=== PATIENT | female | born 1990 | race Caucasian/White ===

== ENCOUNTER 2023-10-27 23:02 | Inpatient (IN) | payer MEDICAID, SELFPAY ==
[2023-10-27 23:09] VITALS: BP 132/86; PULSE 97; RESP 20; TEMP 36.6; O2SAT 99; BMI 22.3
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
[2023-10-27 23:36] LABS: Basophils # 0.1 10^3/uL (0.0-0.1); Basophils % 0.6 %; Eosinophils # 0.1 10^3/uL (0.0-0.8); Eosinophils % 0.8 %; Hematocrit 34.8 % (36-47); Lymphocytes # 2.5 10^3/uL (0.8-4.8); Lymphocytes % 30.5 %; Mean Corpuscular HGB Conc 35.3 g/dL (30-55); Mean Corpuscular Hemoglobin 29.9 pg (27-33); Mean Corpuscular Volume 84.5 fl (85-98); Mean Platelet Volume 9.3 fL (7.4-10.4); Monocytes # 0.4 10^3/uL (0.2-0.9); Monocytes % 4.7 %; Neutrophils # 5.24 10^3/uL (1.8-7.7); Neutrophils % 63.2 %; Nucleated Red Blood Cells % 0 %; Platelet Count 248 10^3/cmm (157-399); Red Blood Count 4.12 10^6/uL (3.85-5.65); Red Cell Distribution Width 12.9 % (12.1-15.1)
[2023-10-27 23:38] LABS: Add Urine Microscopic? NO; Charge for UA Resulting for Rev
[2023-10-27 23:42] LABS: Bilirubin Urine Neg (Negative); Blood Urine Neg (Negative); Glucose Urine UA Norm (Normal); Ketones Urine 1+ (Negative); Leukocyte Esterase Urine Negative (Negative); Nitrate Urine Negative (Negative); Protein Urine Neg (Negative); Urine Appearance Clear (CLEAR); Urine Color Yellow (Yellow); Urobilinogen Urine Neg (Negative); pH Urine 6 (5-7)
[2023-10-27 23:49] LABS: Amphetamines Screen Urine Positive (Negative); Barbiturates Screen Urine Negative (Negative); Benzodiazepines Screen Urine Negative (Negative); Cocaine Screen Urine Negative (Negative); Opiate Screen Urine Negative (Negative); PCP Screen Urine Negative (Negative); THC Screen Urine Positive (Negative)
[2023-10-28 00:03] LABS: Alanine Aminotransferase 20 U/L (0-33); Albumin Level 4.4 g/dL (3.5-5.2); Alkaline Phosphatase 64 U/L (35-105); Anion Gap 14.9 (5-19); Aspartate Amino Transferase 21 U/L (0-32); Blood Urea Nitrogen 14 mg/dL (6-20); Calcium 9.5 mg/dL (8.5-10.5); Carbon Dioxide 21 mmol/L (22-29); Chloride 106 mmol/L (98-107); Creatinine Clr Calc Pharmacy 87.4012; Globulin 2.8 g/dL (1.3-4.6); Glomerular Filtration Rate 81.6 mL/min (90-130); Glucose 88 mg/dL (65-115); Osmolality Calculated 286 mOsm/kg (285-295); Potassium 3.9 mmol/L (3.5-5.1); Sodium 138 mmol/L (136-145); Thyroid Stimulating Hormone 1.05 uIU/mL (0.27-4.20); Total Bilirubin 0.4 mg/dL (0.15-1.2); Total Protein 7.2 g/dL (6.6-8.7)
[2023-10-28 00:05] LABS: Acetaminophen < 5.0 ug/mL (10-30); Alcohol Level < 10 mg/dL (0-10); HCG, Serum Qual Negative (Negative); Salicylate < 0.3 mg/dL (3-10)
[2023-10-28 00:34] VITALS: BP 108/63; PULSE 94; RESP 18; TEMP 36.6; O2SAT 98
--- NOTE | 2023-10-28 00:35 | PC.NURSE ---
Report called to Massiel GENAO in NPU. All questions and concerns addressed at time of report.
[2023-10-28] MEDS: nicotine 4 mg lozenge MUCOUS MEM ×4 (00:56→18:46)
[2023-10-28 06:00] VITALS: BP 109/66; PULSE 70; RESP 16; O2SAT 99
[2023-10-28 08:13] LABS: Glucose Point of Care 159 mg/dL (70-110)
[2023-10-28] MEDS: fixodent 39 gm Tube 1 APPLIC DENTAL ×2 (08:14→21:36)
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
[2023-10-28 14:00] VITALS: BP 97/60; PULSE 71; RESP 16; TEMP 36.6; O2SAT 100
[2023-10-28 20:44] VITALS: BP 106/54; PULSE 70; RESP 14; TEMP 36.8; O2SAT 98
[2023-10-28] MEDS: hyDROXYzine 25 mg Capsule 50 MG PO (20:49)
[2023-10-28] MEDS: prazosin 1 mg Capsule PO (20:49)
[2023-10-29 05:50] VITALS: BP 109/77; PULSE 140; RESP 17; TEMP 36.7; O2SAT 98
[2023-10-29] MEDS: nicotine 4 mg lozenge MUCOUS MEM ×6 (05:59→20:46)
[2023-10-29 06:10] VITALS: PULSE 92
[2023-10-29] MEDS: acetaminophen 325 mg Tablet 650 MG PO (06:17)
[2023-10-29] MEDS: buPROPion XL (24 HR) 150 mg Tablet PO (07:45)
--- NOTE | 2023-10-29 08:12 | P.NPUPN_ITS ---
Subjective NPU 2 Subjective: Patient presented today reporting that she is doing okay. She reported getting the medications last night and this morning and denied any specific issues thus far. She denied feeling worse than she did yesterday but did not report feeling better. She denied any side effects to the medication and reports that she is just hopeful that things will get better and she will be able to engage in some kind of treatment that can change the trajectory of her life right now. Mental Status Exam 2 MSE Comments: This is a slender versus underweight white female in hospital scrubs with limited grooming and adequate eye contact. Absent dentition looking older than her stated age with some tattoos on exposed skin. No abnormal movements except for psychomotor retardation. Cooperative with exam in mild to moderate distress. Speech was slightly decreased rate and volume. Mood described as bilateral no definitely not worse, affect is congruent.? Thought process: linear and logical.?Thought content: patient denies current suicidal or homicidal ideation, paranoia reported and patient appears guarded. She denied current auditory or visual hallucinations. Attention and concentration are intact and memory appears mostly reliable but none were formally tested. She is alert and oriented times 3. ? Insight and judgment limited. Impulse control is limited. Vitals/I&O/Wt Last Vital Signs Temp 98.1 F 10/29/23 05:50 Pulse 92 10/29/23 06:10 Resp 17 10/29/23 05:50 BP 109/77 10/29/23 05:50 Pulse Ox 98 10/29/23 05:50 O2 Del Method Room Air 10/29/23 05:50 Weight last 48 hrs Weight 58.967 kg Data NPU 10/27/23 23:30 10/27/23 23:30 A&P Assessment and plan (1) Drug-induced psychotic disorder: Qualifiers: Complication of substance-induced condition: with delusions Qualified Code(s): F19.950 - Other psychoactive substance use, unspecified with psychoactive substance-induced psychotic disorder with delusions (2) Major depressive disorder, recurrent: (3) PTSD (post-traumatic stress disorder): (4) Anxiety disorder: (5) Methamphetamine use disorder, severe: (6) History of alcohol use disorder: (7) Cannabis use disorder: Plan This is a 33-year-old white female with a long history of psychiatric illness and addiction going back to childhood with reports of significant trauma and PTSD symptoms who presents with a complex history of substance use, mental health issues, and social challenges open to restarting some medications with which she has had past success. 1.? ?Encourage individual ,milieu, and group therapy 2. ? We will attempt to gather collateral information. 3. ? TO-15 minute checks on the unit. 4.? Recommend sober living treatment at the highest level of care to which the patient is willing to commit. 5. Started Wellbutrin XL 150 mg p.o. every morning and prazosin 1 mg p.o. nightly. Involuntary Hold Information 2 96 Hour Hold: 96 Hour Involuntary Admission: No Attestations NPU 2 Medical Necessity Statement*: Inpatient hospitalization is medically necessary and the clinically appropriate intervention at this time. We will monitor/initiate medications and make changes as indicated. Likely length of stay is 2-4 days. Coding Level of Care Code Acute Code for g Fwd Diagnoses Drug-induced psychotic disorder F19.950 Complication of substance-induced condition: with delusions Major depressive disorder, recurrent F33.9 PTSD (post-traumatic stress disorder) F43.10 Anxiety disorder F41.9 Methamphetamine use disorder, severe F15.20 History of alcohol use disorder Z87.898 Cannabis use disorder F12.90
[2023-10-29] MEDS: hyDROXYzine 25 mg Capsule 50 MG PO (09:01)
[2023-10-29] MEDS: OLANZapine 5 mg ODT PO ×2 (10:07→20:46)
--- NOTE | 2023-10-29 10:08 | PC.NURSE ---
Pt is extremely anxious this morning, administered Vistaril 50mg PO and also 30 min later pt required 5mg Zyprexa.
[2023-10-29 14:00] VITALS: BP 101/64; PULSE 92; RESP 16; TEMP 36.6; O2SAT 100
[2023-10-29 19:35] VITALS: BP 98/56; PULSE 77; RESP 16; TEMP 36.4; O2SAT 99
[2023-10-29] MEDS: prazosin 1 mg Capsule PO (20:46)
[2023-10-30] MEDS: hyDROXYzine 25 mg Capsule 50 MG PO ×3 (00:47→17:53)
[2023-10-30] MEDS: nicotine 4 mg lozenge MUCOUS MEM ×8 (00:47→19:38)
[2023-10-30 06:00] VITALS: BP 102/68; PULSE 66; RESP 17; TEMP 36.7; O2SAT 98
[2023-10-30] MEDS: buPROPion XL (24 HR) 150 mg Tablet PO (07:59)
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
[2023-10-30] MEDS: OLANZapine 5 mg ODT PO ×2 (10:31→21:34)
--- NOTE | 2023-10-30 11:04 | P.NPUPN_ITS ---
Subjective NPU 2 Subjective: Patient presented today reporting that she is managing wanted to do medications without incident. She has been mostly isolating and lying in her bed per staff reports and direct observation. We continue to discuss getting her connected with sober living treatment and that the social work team will be back tomorrow and able to assist her in looking at the options and possibilities. She has been using a lot of as needed medications to try to cope with her withdrawal and anxiety. She denied any side effects to the medication. Mental Status Exam 2 MSE Comments: This is a slender versus underweight white female in hospital scrubs with limited grooming and adequate eye contact. Absent dentition looking older than her stated age with some tattoos on exposed skin. No abnormal movements except for psychomotor retardation. Cooperative with exam in mild to moderate distress. Speech was slightly decreased rate and volume. Mood described as bilateral no definitely not worse, affect is congruent.? Thought process: linear and logical.?Thought content: patient denies current suicidal or homicidal ideation, paranoia reported and patient appears guarded. She denied current auditory or visual hallucinations. Attention and concentration are intact and memory appears mostly reliable but none were formally tested. She is alert and oriented times 3. ? Insight and judgment limited. Impulse control is limited. Vitals/I&O/Wt Last Vital Signs Temp 98.1 F 10/30/23 06:00 Pulse 66 10/30/23 06:00 Resp 17 10/30/23 06:00 BP 102/68 10/30/23 06:00 Pulse Ox 98 10/30/23 06:00 O2 Del Method Room Air 10/30/23 06:00 Weight last 48 hrs Weight 58.967 kg Data NPU 10/27/23 23:30 10/27/23 23:30 A&P Assessment and plan (1) Drug-induced psychotic disorder: Qualifiers: Complication of substance-induced condition: with delusions Qualified Code(s): F19.950 - Other psychoactive substance use, unspecified with psychoactive substance-induced psychotic disorder with delusions (2) Major depressive disorder, recurrent: (3) PTSD (post-traumatic stress disorder): (4) Anxiety disorder: (5) Methamphetamine use disorder, severe: (6) History of alcohol use disorder: (7) Cannabis use disorder: Plan This is a 33-year-old white female with a long history of psychiatric illness and addiction going back to childhood with reports of significant trauma and PTSD symptoms who presents with a complex history of substance use, mental health issues, and social challenges open to restarting some medications with which she has had past success. 1.? ?Encourage individual ,milieu, and group therapy 2. ? We will attempt to gather collateral information. 3. ? TO-15 minute checks on the unit. 4.? Recommend sober living treatment at the highest level of care to which the patient is willing to commit. 5. Started Wellbutrin XL 150 mg p.o. every morning and prazosin 1 mg p.o. nightly. Involuntary Hold Information 2 96 Hour Hold: 96 Hour Involuntary Admission: No Attestations NPU 2 Medical Necessity Statement*: Inpatient hospitalization is medically necessary and the clinically appropriate intervention at this time. We will monitor/initiate medications and make changes as indicated. Likely length of stay is 2-3 days. Coding Level of Care Code Acute Code for [facility] Fwd Diagnoses Drug-induced psychotic disorder F19.950 Complication of substance-induced condition: with delusions Major depressive disorder, recurrent F33.9 PTSD (post-traumatic stress disorder) F43.10 Anxiety disorder F41.9 Methamphetamine use disorder, severe F15.20 History of alcohol use disorder Z87.898 Cannabis use disorder F12.90
[2023-10-30 13:31] VITALS: BP 100/55; PULSE 92; RESP 16; TEMP 36.6; O2SAT 99
[2023-10-30] MEDS: haloperidol 5 mg Tablet PO (18:01)
[2023-10-30] MEDS: benztropine 1 mg Tablet PO (18:01)
[2023-10-30 19:54] VITALS: BP 110/78; PULSE 93; RESP 18; TEMP 36.8; O2SAT 98
[2023-10-30] MEDS: prazosin 1 mg Capsule PO (21:34)
[2023-10-31 06:00] VITALS: BP 123/87; PULSE 99; RESP 16; TEMP 36.9; O2SAT 96
[2023-10-31] MEDS: nicotine 4 mg lozenge MUCOUS MEM ×5 (06:19→17:24)
[2023-10-31] MEDS: acetaminophen 325 mg Tablet 650 MG PO (07:49)
[2023-10-31] MEDS: buPROPion XL (24 HR) 150 mg Tablet PO (07:49)
[2023-10-31] MEDS: hyDROXYzine 25 mg Capsule 50 MG PO ×2 (09:12→15:09)
[2023-10-31 14:00] VITALS: BP 103/71; PULSE 85; RESP 16; TEMP 36.6; O2SAT 98
--- NOTE | 2023-10-31 16:10 | P.NPUPN_ITS ---
Subjective NPU 2 Subjective: Patient presented today reporting that she is feeling some level of improvement. She was once again somewhat focused on finding someplace to evaluate her for autism or ADHD. We discussed the role that addiction can play and distorting a presentation and the importance of her having sobriety for a good period of time for someone to have confidence in any diagnoses that she is given. She denied any specific side effects of the medication and was working with the social work team on possible sober living options. Mental Status Exam 2 MSE Comments: This is a slender versus underweight white female in hospital scrubs with limited grooming and adequate eye contact. Absent dentition looking older than her stated age with some tattoos on exposed skin. No abnormal movements except for psychomotor retardation. Cooperative with exam in mild distress. Speech was slightly decreased rate and volume. Mood described as a little better but definitely not worse, affect is congruent.? Thought process: linear and logical.?Thought content: patient denies current suicidal or homicidal ideation, paranoia reported and patient appears guarded. She denied current auditory or visual hallucinations. Attention and concentration are intact and memory appears mostly reliable but none were formally tested. She is alert and oriented times 3. ? Insight and judgment limited. Impulse control is limited. Vitals/I&O/Wt Last Vital Signs Temp 98 F 10/31/23 14:00 Pulse 85 10/31/23 14:00 Resp 16 10/31/23 14:00 BP 103/71 10/31/23 14:00 Pulse Ox 98 10/31/23 14:00 O2 Del Method Room Air 10/31/23 14:00 Weight last 48 hrs Weight 58.967 kg Data NPU 10/27/23 23:30 10/27/23 23:30 A&P Assessment and plan (1) Drug-induced psychotic disorder: Qualifiers: Complication of substance-induced condition: with delusions Qualified Code(s): F19.950 - Other psychoactive substance use, unspecified with psychoactive substance-induced psychotic disorder with delusions (2) Major depressive disorder, recurrent: (3) PTSD (post-traumatic stress disorder): (4) Anxiety disorder: (5) Methamphetamine use disorder, severe: (6) History of alcohol use disorder: (7) Cannabis use disorder: Plan This is a 33-year-old white female with a long history of psychiatric illness and addiction going back to childhood with reports of significant trauma and PTSD symptoms who presents with a complex history of substance use, mental health issues, and social challenges open to restarting some medications with which she has had past success. 1.? ?Encourage individual ,milieu, and group therapy 2. ? We will attempt to gather collateral information. 3. ? TO-15 minute checks on the unit. 4.? Recommend sober living treatment at the highest level of care to which the patient is willing to commit. 5. Started Wellbutrin XL 150 mg p.o. every morning and prazosin 1 mg p.o. nightly. Involuntary Hold Information 2 96 Hour Hold: 96 Hour Involuntary Admission: No Attestations NPU 2 Medical Necessity Statement*: Inpatient hospitalization is medically necessary and the clinically appropriate intervention at this time. We will monitor/initiate medications and make changes as indicated. Likely length of stay is 1-3 days. Coding Level of Care Code Acute Code for [facility] Fwd Diagnoses Drug-induced psychotic disorder F19.950 Complication of substance-induced condition: with delusions Major depressive disorder, recurrent F33.9 PTSD (post-traumatic stress disorder) F43.10 Anxiety disorder F41.9 Methamphetamine use disorder, severe F15.20 History of alcohol use disorder Z87.898 Cannabis use disorder F12.90
[2023-10-31] MEDS: OLANZapine 5 mg ODT PO (17:08)
--- NOTE | 2023-10-31 17:55 | PC.NURSE ---
room searched by staff, no contraband found at this time.
[2023-10-31 20:21] VITALS: BP 131/83; PULSE 93; RESP 17; TEMP 36.9; O2SAT 99
[2023-10-31] MEDS: prazosin 1 mg Capsule PO (20:46)
[2023-10-31] MEDS: propranolol 20 mg Tablet 10 MG PO (20:46)
[2023-11-01 06:00] VITALS: BP 109/64; PULSE 80; RESP 16; TEMP 36.7; O2SAT 97
[2023-11-01] MEDS: nicotine 4 mg lozenge MUCOUS MEM ×6 (07:43→18:22)
[2023-11-01] MEDS: propranolol 20 mg Tablet 10 MG PO ×3 (08:38→20:09)
[2023-11-01] MEDS: buPROPion XL (24 HR) 150 mg Tablet PO (08:38)
[2023-11-01] MEDS: OLANZapine 5 mg ODT PO (12:12)
--- NOTE | 2023-11-01 13:00 | W.PM.NPUPNS ---
Subjective NPU Subjective: Patient presented today reporting that she is starting to feel better. Notable improvement expressed by staff and noteworthy on direct observation. She expressed a need for something to help with her sleep and we discussed the risk benefits and alternatives of a trial of Seroquel and she understood agreed to proceed as is documented in this note. She endorsed having previous success with Seroquel. She reported that she was working with social media content specialist for some different options for discharge in the next day or so. She denied any side effects of the medications. Mental Status Exam MSE Comments: This is a slender versus underweight white female in hospital scrubs with improving grooming and adequate eye contact. Absent dentition looking older than her stated age with some tattoos on exposed skin. No abnormal movements except for mild psychomotor retardation. Cooperative with exam in mild distress. Speech was more normal rate and volume. Mood described as a little better, affect is congruent.? Thought process: linear and logical.?Thought content: patient denies current suicidal or homicidal ideation, paranoia reported and patient appears guarded. She denied current auditory or visual hallucinations. Attention and concentration are intact and memory appears mostly reliable but none were formally tested. She is alert and oriented times 3. ? Insight and judgment limited. Impulse control is limited. Vitals/I&O/Wt Last Vital Signs Temp 98.0 F 11/01/23 06:00 Pulse 80 11/01/23 06:00 Resp 16 11/01/23 06:00 BP 109/64 11/01/23 06:00 Pulse Ox 97 11/01/23 06:00 O2 Del Method Room Air 11/01/23 06:00 Data NPU 10/27/23 23:30 10/27/23 23:30 A&P Assessment and plan (1) Drug-induced psychotic disorder: Qualifiers: Complication of substance-induced condition: with delusions Qualified Code(s): F19.950 - Other psychoactive substance use, unspecified with psychoactive substance-induced psychotic disorder with delusions (2) Major depressive disorder, recurrent: (3) PTSD (post-traumatic stress disorder): (4) Anxiety disorder: (5) Methamphetamine use disorder, severe: (6) History of alcohol use disorder: (7) Cannabis use disorder: Plan This is a 33-year-old white female with a long history of psychiatric illness and addiction going back to childhood with reports of significant trauma and PTSD symptoms who presents with a complex history of substance use, mental health issues, and social challenges open to restarting some medications with which she has had past success. 1.? ?Encourage individual ,milieu, and group therapy 2. ? We will attempt to gather collateral information. 3. ? TO-15 minute checks on the unit. 4.? Recommend sober living treatment at the highest level of care to which the patient is willing to commit. 5. Started Wellbutrin XL 150 mg p.o. every morning and prazosin 1 mg p.o. nightly. We discussed a trial of Seroquel 50 to 100 mg p.o. nightly to help with sleep. Involuntary Hold Information 96 Hour Hold: 96 Hour Involuntary Admission: No Attestations NPU Medical Necessity Statement*: Inpatient hospitalization is medically necessary and the clinically appropriate intervention at this time. We will monitor/initiate medications and make changes as indicated. Likely length of stay is 1-3 days. Coding Level of Care Code Acute Code for [facility] Diagnoses Drug-induced psychotic disorder F19.950 Complication of substance-induced condition: with delusions Major depressive disorder, recurrent F33.9 PTSD (post-traumatic stress disorder) F43.10 Anxiety disorder F41.9 Methamphetamine use disorder, severe F15.20 History of alcohol use disorder Z87.898 Cannabis use disorder F12.90
[2023-11-01 14:00] VITALS: BP 111/74; PULSE 85; RESP 16; TEMP 36.6; O2SAT 98
--- NOTE | 2023-11-01 18:40 | PC.NURSE ---
Room check completed with no contraband recovered.
[2023-11-01 19:42] VITALS: BP 93/59; PULSE 80; RESP 16; TEMP 36.9; O2SAT 99
[2023-11-01] MEDS: prazosin 1 mg Capsule PO (20:10)
[2023-11-01] MEDS: hyDROXYzine 25 mg Capsule 50 MG PO (20:15)
[2023-11-02] MEDS: nicotine 4 mg lozenge MUCOUS MEM ×6 (03:23→16:56)
[2023-11-02 05:05] VITALS: BP 112/81; PULSE 120; RESP 15; TEMP 36.8; O2SAT 98
[2023-11-02] MEDS: OLANZapine 5 mg ODT PO ×2 (05:23→17:16)
[2023-11-02] MEDS: propranolol 20 mg Tablet 10 MG PO ×2 (08:00→14:54)
[2023-11-02] MEDS: buPROPion XL (24 HR) 150 mg Tablet PO (08:00)
[2023-11-02] MEDS: hyDROXYzine 25 mg Capsule 50 MG PO (11:51)
[2023-11-02 14:00] VITALS: BP 108/74; PULSE 89; RESP 16; TEMP 36.6; O2SAT 98
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
[2023-11-02 14:28] VITALS: BP 112/81; PULSE 120; RESP 15; TEMP 36.8; O2SAT 98
== END 2023-11-02 17:20 | disposition home or self-care (01) | DRG 897 ==
LOC: ER 23:50 → NP 10-28 00:19
PROVIDERS: Admitting Provider Psychiatry & Neurology Psychiatry; Emergency Provider Nurse Practitioner Family; Visit Provider Psychiatry & Neurology Psychiatry
DX: F15.959 Other stimulant use, unspecified with stimulant-induced psychotic disorder, unspecified (principal); F32.9 Major depressive disorder, single episode, unspecified; F43.12 Post-traumatic stress disorder, chronic; F41.9 Anxiety disorder, unspecified; F10.21 Alcohol dependence, in remission; Z72.0 Tobacco use; Z62.810 Personal history of physical and sexual abuse in childhood
CPT/HCPCS: 36415; 36416; 80053; 80306; 80307; 81003; 82962; 84443; 84703; 85025; 97150; 97165; 99285; J9999

== ENCOUNTER 2024-03-02 18:23 | Emergency (ER) | payer MEDICAID, SELFPAY ==
[2024-03-02 18:32] VITALS: BP 128/68; PULSE 110; RESP 14; TEMP 36.9; O2SAT 97
--- NOTE | 2024-03-02 20:00 | W.ED.PSYCHS ---
HPI - Psych General: Chief Complaint: Psychiatric Symptoms Stated Complaint: Just got out of [facility], wants Meds, Ask for St. Unit Time Seen by Provider: 03/02/24 19:45 History of Present Illness: 33-year-old female with a history of drug-induced psychosis and depression who just got out of [facility] and does not have any of her medication she says. She does not really know the dosages either. She is requesting admission to the hospital to be started back on her medications. She denies any homicidal or suicidal ideations. She says she just did this in the past. However psychiatric unit is closed with [facility] at the moment and she does not qualify for transfer for inpatient admission. She expresses understanding. Related Data Previous Rx's Medication Instructions Recorded bupropion HCl 150 mg 24 hr tablet, 150 mg PO DAILY 30 days #30 tabs 11/02/23 extended release hydroxyzine pamoate 25 mg capsule 50 mg (2 x 25 mg) PO Q6H PRN 11/02/23 Anxiety 30 days #120 caps prazosin 1 mg capsule 1 mg PO BEDTIME 30 days #30 caps 11/02/23 propranolol 20 mg tablet 10 mg (1/2 x 20 mg) PO TID 30 days 11/02/23 #45 tabs quetiapine 50 mg tablet 75 mg (1.5 x 50 mg) PO BEDTIME PRN 11/02/23 Sleep 30 days #45 tabs olanzapine 5 mg tablet (Zyprexa) 5 mg PO DAILY #30 tabs 03/02/24 prazosin 1 mg capsule 1 mg PO .qhs #30 caps 03/02/24 propranolol 10 mg tablet 10 mg PO BID #60 tabs 03/02/24 venlafaxine 75 mg capsule,extended 75 mg PO DAILY #30 caps 03/02/24 release 24 hr (Effexor XR) Allergies Allergy/AdvReac Type Severity Reaction Status Date / Time wool Allergy ADR-Itching Verified 03/02/24 18:39 Review of Systems Narrative: Constitutional symptoms: Negative except as documented in HPI. Skin symptoms: Negative except as documented in HPI. Eye symptoms: Negative except as documented in HPI. ENMT symptoms: Negative except as documented in HPI. Respiratory symptoms: Negative except as documented in HPI. Cardiovascular symptoms: Negative except as documented in HPI. Gastrointestinal symptoms: Negative except as documented in HPI. Genitourinary symptoms: Negative except as documented in HPI. Musculoskeletal symptoms: Negative except as documented in HPI. Neurologic symptoms: Negative except as documented in HPI. Psychiatric symptoms: Negative except as documented in HPI. Endocrine symptoms: Negative except as documented in HPI. PFSH ED PFSH: Social History Smoking and tobacco/nicotine status: unknown if used tobacco/nicotine Physical Exam Narrative: EXAM NARRATIVE: General: Alert, no acute distress. Skin: Warm, dry. Head: Normocephalic, atraumatic. Neck: Supple, trachea midline. Eye: Extraocular movements are intact. Ears, nose, mouth and throat: mucosa moist. Cardiovascular: Regular, Normal peripheral perfusion. Respiratory: Lungs are clear to auscultation, respirations are non-labored, breath sounds are equal, Symmetrical chest wall expansion. Gastrointestinal: Soft, Nontender, Non distended Musculoskeletal: Normal ROM, no deformity. Neurological: Alert and oriented, No focal neurological deficit observed. Psychiatric: Cooperative, denies any homicidal or suicidal ideations. Course Vital Signs: Vital signs: Vital Signs Temperature 98.4 F 03/02/24 18:32 Pulse Rate 110 H 03/02/24 18:32 Respiratory Rate 14 03/02/24 18:32 Blood Pressure 128/68 03/02/24 18:32 Pulse Oximetry 97 03/02/24 18:32 Oxygen Delivery Me thod Room Air 03/02/24 18:32 MDM - Psych Medical Decision Making Assessment and plan: Chronic psychiatric issues - Discharged home - Discussed plan with patient. Answered any questions. - Evaluation and treatment of this problem were appropriate in the emergency setting. No radiology studies performed this visit Discharge Plan Discharge Patient Disposition: Home Clinical Impression: Major depressive disorder, recurrent Drug-induced psychotic disorder Qualifiers: Complication of substance-induced condition: with delusions Qualified Code(s): F19.950 - Other psychoactive substance use, unspecified with psychoactive substance-induced psychotic disorder with delusions Condition: Stable Prescriptions: New Effexor XR 75 mg capsule,extended release 24hr 75 mg PO DAILY Qty: 30 0RF propranolol 10 mg tablet 10 mg PO BID Qty: 60 0RF prazosin 1 mg capsule 1 mg PO .qhs Qty: 30 0RF Zyprexa 5 mg tablet 5 mg PO DAILY Qty: 30 0RF No Action hydroxyzine pamoate 25 mg Capsule 50 mg PO Q6H PRN (Reason: Anxiety) 30 Days Qty: 120 1RF bupropion HCl 150 mg Tablet Extended Release 24 Hr 150 mg PO DAILY 30 Days Qty: 30 1RF quetiapine 50 mg tablet 75 mg PO BEDTIME PRN (Reason: Sleep) 30 Days Qty: 45 1RF propranolol 20 mg Tablet 10 mg PO TID 30 Days Qty: 45 1RF prazosin 1 mg capsule 1 mg PO BEDTIME 30 Days Qty: 30 1RF Discharge Orders: Discharge ED (Routine); Ordered 03/02/24 Ordered By: Abimbola Parker Discharge Diet: Usual diet Discharge Activity: Resume usual activity Patient Instructions: Depression (ED) Activity Restrictions/Additional Instructions: If you develop suicidal thoughts, or thoughts of harming yourself, or thoughts of harming others please seek medical attention immediately. Thank you for choosing [facility] for your healthcare needs today. Please realize this is an emergency room and that we are providing you with a medical screening exam and this may not be complete and all inclusive of all the testing and or work up that you may need to determine your ailment or severity of your illness. You have been screened and evaluated and felt safe for discharge. Health conditions do change or evolve sometimes and as such it is important that you follow up with your Primary Doctor to be re checked, 3-5 days is a general good time frame for follow up. You are always welcome to return to the ED for re assessment if your symptoms are worsening or you have new concerns Coding Level of Care Code ED Clinical Operations Consultant for [facility]
[2024-03-02 20:29] VITALS: BP 135/86; PULSE 113; O2SAT 100
== END 2024-03-02 20:38 | disposition home or self-care (01) ==
PROVIDERS: Emergency Provider Emergency Medicine
DX: F33.9 Major depressive disorder, recurrent, unspecified (principal); F19.950 Other psychoactive substance use, unspecified with psychoactive substance-induced psychotic disorder with delusions
CPT/HCPCS: 99283